=== PATIENT | male | born 1935 | race Caucasian/White ===

== ENCOUNTER 2022-06-25 21:58 | Emergency (ER) | payer MEDICARE, OTHER ==
[2022-06-26 01:10] VITALS: BP 127/59; PULSE 60
== END 2022-06-25 22:38 | disposition home or self-care (01) ==
LOC: CC.ED 21:58
DX: G89.18 Other acute postprocedural pain (principal); M25.562 Pain in left knee; K21.9 Gastro-esophageal reflux disease without esophagitis; M19.90 Unspecified osteoarthritis, unspecified site; Z88.0 Allergy status to penicillin; Z79.82 Long term (current) use of aspirin; Z79.899 Other long term (current) drug therapy; Z96.652 Presence of left artificial knee joint
CPT/HCPCS: 99283